=== PATIENT | male | born 1990 | race African-American/Black ===

== ENCOUNTER 2018-04-02 15:19 | Emergency (ER) | payer BC ==
[~2018-04-02] VITALS: Ht 177.8 cm; Wt 92.0 kg
[2018-04-02 15:32] VITALS: BP 150/82; PULSE 63; RESP 12; TEMP 97.5; O2SAT 99
[2018-04-02 15:36] VITALS: BP 150/82; PULSE 63; RESP 16; TEMP 97.3; O2SAT 99
--- NOTE | 2018-04-02 16:03 | RADRPT ---
EXAM DATE: 04/02/2018 3:58 PM EDT AGE/SEX: 27 years / Male INDICATIONS: Left sided chest pain. CLINICAL DATA: This is the patient's initial encounter. Patient reports that signs and symptoms have been present for 2 days and indicates a pain score of 6/10. MEDICAL/SURGICAL HISTORY: Hypertension. None. COMPARISON: No prior exams available for comparison. FINDINGS: PA and lateral views of the chest demonstrate the lungs to be symmetrically aerated without evidence of mass, infiltrate or effusion. The cardiomediastinal contours are unremarkable. Osseous structures are intact. CONCLUSION: No acute cardiopulmonary process. Electronically signed by: Jaziel Staples MD 04/02/2018 4:02 PM EDT
[2018-04-02 16:41] LABS: AUTOMATED NEUTROPHIL # 2.3 TH/MM3 (1.8-7.7); BASOPHIL % 0.2 % (0.0-2.0); EOSINOPHIL % 0.6 % (0.0-4.0); HEMATOCRIT 46.7 % (39.0-51.0); LYMPH % 39.9 % (9.0-44.0); LYMPHOCYTE # 1.8 TH/MM3 (1.0-4.8); MEAN CELL VOLUME 84.3 FL (80.0-100.0); MEAN CORPUSCULAR HGB CONC 32.1 % (32.0-36.0); MEAN PLATELET VOLUME 7.3 FL (7.0-11.0); MONO % 7.7 % (0.0-8.0); MONOCYTE # 0.3 TH/MM3 (0-0.9); NEUT % 51.6 % (16.0-70.0); PLATELET COUNT 246 TH/MM3 (150-450); RED BLOOD COUNT 5.54 MIL/MM3 (4.50-5.90); RED CELL DISTRIBUTION WIDTH 13.7 % (11.6-17.2); WHITE BLOOD COUNT 4.5 TH/MM3 (4.0-11.0)
[2018-04-02 16:49] VITALS: BP 142/71; PULSE 68; RESP 16; O2SAT 99
--- NOTE | 2018-04-02 16:49 | PD ---
HPI Chief Complaint: Chest Pain Time Seen by Provider: 16:45 Travel History International Travel<30 days: No Contact w/Intl Traveler<30days: No Traveled to known affect area: No History of Present Illness HPI 27-year-old male presents the ED for evaluation intermittent left-sided chest pain, onset around 10 AM after waking up yesterday. Patient describes the pain as "like a pressure." It radiates into his left shoulder. He can identify no alleviating or exacerbating factors. Maximally 10. He states he has been short of breath today which prompted evaluation. He denies accompanying nausea , vomiting, palpitations, diaphoresis. He denies injury or recent overuse. He endorses daily marijuana use. He denies cocaine or other stimulant use. He denies cigarette smoking. He denies familial history of [place]. He states that the pain is currently resolved. He states that he saw a primary care approximately year and half ago. He states he was told that he had hypertension and "an enlarged heart" at that time. He took medications for a few months but was incarcerated and has not resumed the medications. No treatment attempted at home. FOR[facility]LY [facility], LATER [facility] Past Medical History Diminished Hearing: No Hypertension: Yes (prev on lisinipril - no longer) Musculoskeletal: Yes (right shoulder fx 2004) Immunizations Current: No Social History Alcohol Use: Yes (SOC) Tobacco Use: No Substance Use: Yes (marijuana) Allergies-Medications (Allergen,Severity, Reaction): Coded Allergies: No Known Allergies (Unverified Allergy, 11/28/17) Reported Meds & Prescriptions Reported Meds & Active Scripts Active No Active Prescriptions or Reported Medications Review of Systems Except as stated in HPI: all other systems reviewed are Neg Physical Exam Narrative GENERAL: Well-nourished, well-developed -[place] male no acute distress. SKIN: Focused skin assessment warm/dry. HEAD: Normocephalic. EYES: No scleral icterus. No injection or drainage. NECK: Supple, trachea midline. No JVD or lymphadenopathy. CARDIOVASCULAR: Regular rate and rhythm without murmurs, gallops, or rubs. CHEST: Nontender throughout without deformity or crepitus. RESPIRATORY: Breath sounds clear and equal bilaterally. No accessory muscle use. GASTROINTESTINAL: Abdomen soft, non-tender, nondistended. Active bowel sounds. MUSCULOSKELETAL: No cyanosis, or edema. BACK: Nontender without obvious deformity. No CVA tenderness. Data Data Last Documented VS Vital Signs Date Time Temp Pulse Resp B/P (MAP) Pulse Ox O2 Delivery O2 Flow Rate FiO2 04/02/18 18:00 53 14 140/87 (104) 99 Room Air 04/02/18 15:36 97.3 Orders Orders Electrocardiogram (04/02/18 15:39) Complete Blood Count With Diff (04/02/18 15:39) Basic Metabolic Panel (Bmp) (04/02/18 15:39) Ckmb (Isoenzyme) Profile (04/02/18 15:39) Troponin I (04/02/18 15:39) Chest, Pa & Lat (04/02/18 15:39) CKMB (04/02/18 16:04) CKMB% (04/02/18 16:04) Troponin I (04/02/18 19:00) Labs Laboratory Tests Test 04/02/18 16:04 White Blood Count 4.5 TH/MM3 Red Blood Count 5.54 MIL/MM3 Hemoglobin 15.0 GM/DL Hematocrit 46.7 % Mean Corpuscular Volume 84.3 FL Mean Corpuscular Hemoglobin 27.0 PG Mean Corpuscular Hemoglobin Concent 32.1 % Red Cell Distribution Width 13.7 % Platelet Count 246 TH/MM3 Mean Platelet Volume 7.3 FL Neutrophils (%) (Auto) 51.6 % Lymphocytes (%) (Auto) 39.9 % Monocytes (%) (Auto) 7.7 % Eosinophils (%) (Auto) 0.6 % Basophils (%) (Auto) 0.2 % Neutrophils # (Auto) 2.3 TH/MM3 Lymphocytes # (Auto) 1.8 TH/MM3 Monocytes # (Auto) 0.3 TH/MM3 Eosinophils # (Auto) 0.0 TH/MM3 Basophils # (Auto) 0.0 TH/MM3 CBC Comment DIFF FINAL Differential Comment Blood Urea Nitrogen 11 MG/DL Creatinine 1.12 MG/DL Random Glucose 83 MG/DL Calcium Level 9.0 MG/DL Sodium Level 139 MEQ/L Potassium Level 3.8 MEQ/L Chloride Level 105 MEQ/L Carbon Dioxide Level 27.1 MEQ/L Anion Gap 7 MEQ/L Estimat Glomerular Filtration Rate 95 ML/MIN Total Creatine Kinase 293 U/L Creatine Kinase MB 2.2 NG/ML Troponin I LESS THAN 0.02 NG/ML MDM Medical Decision Making Medical Screen Exam Complete: Yes Emergency Medical Condition: Yes Differential Diagnosis Musculoskeletal chest pain versus atypical chest pain versus ACS versus angina versus costochondritis versus other` Narrative Course 27-year-old male with PMH of HTN presents the ED for evaluation 36 hours left- sided chest pain with intermittent shortness of breath. Vitals reviewed. Physical exam is unremarkable. Heart score 1, risk of MACE of 0.9-1.7% EKG rate 64, sinus rhythm. TN interval 163, QRS 85, QTC 384 ms. Normal axis. No acute ST changes. Reviewed by Dr. Diallo. CXR: No acute cardiopulmonary process. Cardiac enzymes negative [address] Ruffin. Will order a second set of troponins, anticipate discharge if these are negative. Diagnosis Primary Impression: Chest pain Scripts No Active Prescriptions or Reported Meds Dayan Dawson Apr 02, 2018 16:49
[2018-04-02 17:01] LABS: BICARBONATE 27.1 MEQ/L (21.0-32.0); BLOOD UREA NITROGEN 11 MG/DL (7-18); CHLORIDE 105 MEQ/L (98-107); CREATININE 1.12 MG/DL (0.60-1.30); GLOMERULAR FILTRATION RATE 95 ML/MIN (>89); GLUCOSE,RANDOM 83 MG/DL (74-106); SODIUM (NA) 139 MEQ/L (136-145)
[2018-04-02 17:03] LABS: TROPONIN I LESS THAN 0.02 NG/ML (0.02-0.05)
[2018-04-02 18:00] VITALS: BP 140/87; PULSE 53; RESP 14; O2SAT 99
--- NOTE | 2018-04-02 20:46 | PD ---
Physical Exam Date Seen by Provider: Apr 02, 2018 Time Seen by Provider: 20:43 Narrative 27-year-old male came to the emergency room with history of left-sided chest pain. Patient is a smoker and smokes marijuana. Denies doing any other drugs. Otherwise claims to be healthy. He was seen by my nurse practitioner and I am supervising her. Initial workup including EKG and cardiac enzymes were negative. Decision was made to order a second troponin III hours apart and if that is negative given his age I would be comfortable discharging him home. The second troponin is back and is within normal limit. Patient will be discharged home. Data Data Last Documented VS Orders Orders Electrocardiogram (04/02/18 15:39) Complete Blood Count With Diff (04/02/18 15:39) Basic Metabolic Panel (Bmp) (04/02/18 15:39) Ckmb (Isoenzyme) Profile (04/02/18 15:39) Troponin I (04/02/18 15:39) Chest, Pa & Lat (04/02/18 15:39) CKMB (04/02/18 16:04) CKMB% (04/02/18 16:04) Troponin I (04/02/18 19:00) Ed Discharge Order (04/02/18 20:52) Labs Laboratory Tests Test 04/02/18 16:04 04/02/18 19:30 White Blood Count 4.5 TH/MM3 Red Blood Count 5.54 MIL/MM3 Hemoglobin 15.0 GM/DL Hematocrit 46.7 % Mean Corpuscular Volume 84.3 FL Mean Corpuscular Hemoglobin 27.0 PG Mean Corpuscular Hemoglobin Concent 32.1 % Red Cell Distribution Width 13.7 % Platelet Count 246 TH/MM3 Mean Platelet Volume 7.3 FL Neutrophils (%) (Auto) 51.6 % Lymphocytes (%) (Auto) 39.9 % Monocytes (%) (Auto) 7.7 % Eosinophils (%) (Auto) 0.6 % Basophils (%) (Auto) 0.2 % Neutrophils # (Auto) 2.3 TH/MM3 Lymphocytes # (Auto) 1.8 TH/MM3 Monocytes # (Auto) 0.3 TH/MM3 Eosinophils # (Auto) 0.0 TH/MM3 Basophils # (Auto) 0.0 TH/MM3 CBC Comment DIFF FINAL Differential Comment Blood Urea Nitrogen 11 MG/DL Creatinine 1.12 MG/DL Random Glucose 83 MG/DL Calcium Level 9.0 MG/DL Sodium Level 139 MEQ/L Potassium Level 3.8 MEQ/L Chloride Level 105 MEQ/L Carbon Dioxide Level 27.1 MEQ/L Anion Gap 7 MEQ/L Estimat Glomerular Filtration Rate 95 ML/MIN Total Creatine Kinase 293 U/L Creatine Kinase MB 2.2 NG/ML Troponin I LESS THAN 0.02 NG/ML LESS THAN 0.02 NG/ML MDM Supervised Visit with SOUMYA: Yes Diagnosis Primary Impression: Chest pain Qualified Codes: R07.9 - Chest pain, unspecified Additional Instruction: Follow-up with primary care. Return to ER if condition worsens or any other new concerns. Med/Other Pt SpecificInfo: No Change to Meds Scripts No Active Prescriptions or Reported Meds Disposition: 01 DISCHARGE HOME Condition: Stable Nasir Ruffin MD Apr 02, 2018 20:46
--- NOTE | 2018-04-03 09:14 | EKG ---
Date Performed: 04/02/2018 Time Performed: 15:58:40 PTAGE: 27 years EKG: Sinus rhythm WITH SINUS ARRHYTHMIA NONSPECIFIC T-WAVE ABNORMALITY BORDERLINE ECG NO PREVIOUS TRACING DOCTOR: Rogerio Guevara Interpretating Date/Time 04/03/2018 09:13:17
== END 2018-04-02 21:11 | disposition home or self-care (01) ==
LOC: NEPD 15:19
DX: R07.9 Chest pain, unspecified (principal); F12.90 Cannabis use, unspecified, uncomplicated; I10 Essential (primary) hypertension; I49.9 Cardiac arrhythmia, unspecified; R94.31 Abnormal electrocardiogram [ECG] [EKG]
CPT/HCPCS: 71046; 80048; 82550; 82552; 84484; 85025; 93005